=== PATIENT | male | born 1945 | race Asian ===

== ENCOUNTER 2017-06-20 12:20 | Emergency (ER) | payer MEDICARE, MEDICAID ==
[~2017-06-20] VITALS: Ht 167.6 cm; Wt 65.8 kg
[2017-06-20 12:43] VITALS: BP 129/57
[2017-06-20] MEDS ORDERED: LIDOCAINE 1% HCL (LOCAL ANESTH.) INJ 20ML MDV IJ ONE (13:15)
[2017-06-20] MEDS ORDERED: TETANUS-DIPTH-ACEL PERTUSSIS 0.5ML SYRG IM ONE ×2 (13:35→13:45)
== END 2017-06-20 13:47 | disposition home or self-care (01) ==
LOC: ER 12:20
DX: S01.81XA Laceration without foreign body of other part of head, initial encounter (principal); W22.8XXA Striking against or struck by other objects, initial encounter; Y93.89 Activity, other specified; Y92.89 Other specified places as the place of occurrence of the external cause; Y99.8 Other external cause status
CPT/HCPCS: 12015; 90471; 90715; 99283; J2001

== ENCOUNTER 2017-06-22 10:52 | Emergency (ER) | payer MEDICARE, MEDICAID ==
[~2017-06-22] VITALS: Ht 167.6 cm; Wt 72.6 kg
[2017-06-22 11:18] VITALS: BP 129/64
[2017-06-22] MEDS ORDERED: BACITRACIN TOP OINT 1 UD PKG TOP ONE (14:30)
== END 2017-06-22 14:55 | disposition home or self-care (01) ==
LOC: ER 10:52
DX: S01.81XD Laceration without foreign body of other part of head, subsequent encounter (principal); X58.XXXD Exposure to other specified factors, subsequent encounter

== ENCOUNTER 2017-06-27 09:37 | Emergency (ER) | payer MEDICARE, MEDICAID ==
[~2017-06-27] VITALS: Ht 167.6 cm; Wt 65.8 kg
[2017-06-27 11:28] VITALS: BP 141/54
== END 2017-06-27 11:36 | disposition home or self-care (01) ==
LOC: ER 09:37
DX: S01.81XD Laceration without foreign body of other part of head, subsequent encounter (principal); Z48.02 Encounter for removal of sutures

== ENCOUNTER 2023-04-13 08:16 | Inpatient (IN) | payer BC, OTHER ==
[~2023-04-13] VITALS: Ht 165.1 cm; Wt 61.3 kg
[~2023-04-13 08:16] MED LIST: MECL1TAB31 PO
[2023-04-13 09:01] LABS: Basophils # (auto) 0 10 ^3/uL (0-0.2); Basophils % (auto) 0.5 % (0.0-2.0); Eosinophils # (auto) 0.1 10 ^3/uL (0-0.8); Eosinophils % (auto) 2.8 % (0.0-7.0); Hematocrit 41.9 % (41.0-53.0); Hemoglobin 13.8 g/dL (13.5-17.5); Lymphocytes % (auto) 20.6 % (10.0-50.0); Mean Corpuscular Hemoglobin 31.5 pg (28.0-32.0); Mean Corpuscular Volume 95.7 fL (80.0-100.0); Monocytes # (auto) 0.4 10 ^3/uL (0-1.3); Monocytes % (auto) 8.2 % (0.0-12.0); Neutrophils # (auto) 3.3 10 ^3/uL (1.6-8.6); Neutrophils % (auto) 67.9 % (37.0-80.0); Red Blood Cells 4.38 10^6/uL (4.5-5.90); White Blood Cell 4.8 10^3/uL (4.4-10.8)
[2023-04-13 09:19] LABS: Alanine Aminotransferase 19 U/L (7-40); Albumin 4.6 g/dL (3.2-4.8); Alkaline Phosphatase 33 U/L (46-116); Anion Gap 8 (5-15); Aspartate Aminotransferase 11 U/L (13-40); BUN/Creatinine Ratio 12.2 (10.0-20.0); Bilirubin, Total 0.7 mg/dL (0.2-1.0); Blood Urea Nitrogen 17 mg/dL (9-23); Calcium 9.6 mg/dL (8.5-10.1); Carbon Dioxide 26 mmol/L (20-30); Chloride 105 mmol/L (98-107); Glucose 187 mg/dL (74-106); Potassium 4.4 mmol/L (3.5-5.1); Sodium 139 mmol/L (136-145); Total Protein 7.5 g/dL (5.7-8.2)
[2023-04-13 09:59] VITALS: PULSE 84; RESP 16; O2SAT 97
[2023-04-13] MEDS ORDERED: NITROGLYCERIN 0.4 MG SL TAB SL PRN (13:15)
[2023-04-13] MEDS ORDERED: ONDANSETRON HCL 4 MG/2 ML VIAL IV PRN (13:15)
[2023-04-13] MEDS ORDERED: DEXTROSE (50%) 50ML SYRG IV PRN (13:15)
[2023-04-13] MEDS ORDERED: MORPHINE SULFATE INJ 2 MG/ml SYRG IV PRN (13:15)
[2023-04-13] MEDS ORDERED: DOCUSATE SOD 100 MG CAP PO PRN (13:15)
[2023-04-13] MEDS ORDERED: hydrALAZINE HCL 20 MG/ML VL IV PRN (13:15)
[2023-04-13] MEDS ORDERED: ACETAMINOPHEN 325 MG TAB PO PRN (13:15)
[2023-04-13] MEDS ORDERED: METF-372 PO (13:27)
[2023-04-13] MEDS ORDERED: ASPI-325 PO (13:27)
[2023-04-13] MEDS ORDERED: TAMS0.4C36 PO (13:27)
[2023-04-13] MEDS ORDERED: EZET-10 PO (13:27)
[2023-04-13] MEDS ORDERED: CARV6.2551 PO (13:27)
[2023-04-13] MEDS ORDERED: ATOR-47 PO (13:27)
[2023-04-13] MEDS ORDERED: GLIM2TAB94 PO (13:27)
[2023-04-13] MEDS ORDERED: SACU1TAB PO (13:27)
[2023-04-13] MEDS ORDERED: FENO1TAB PO (13:27)
[2023-04-13] MEDS ORDERED: CLOP75TA70 PO (13:27)
[2023-04-13] MEDS ORDERED: EMPA1TAB PO (13:27)
[2023-04-13] MEDS ORDERED: ALEN70TA74 PO (13:27)
[2023-04-13] MEDS ORDERED: FAMO-12 PO (13:27)
[2023-04-13] MEDS ORDERED: SITA100T7 PO (13:27)
[2023-04-13] MEDS ORDERED: ALENDRONATE SODIUM 70 MG PO SCH (13:30)
[2023-04-13] MEDS ORDERED: SODIUM CHLORIDE 0.9% 1,000 ML IV ONE (13:30)
[2023-04-13] MEDS: ACCU-CHEK COMFORT CURVE STRIP VI SCH ×2 (17:22→22:16)
[2023-04-13] MEDS: TAMSULOSIN HYDROCHLORIDE 0.4 MG CAP PO SCH (19:01)
[2023-04-13] MEDS: InsuLIN REG 1unit/0.01ml Soln (100units/ml) SC SCH ×2 (19:39→22:21)
[2023-04-13 20:10] VITALS: PULSE 81; RESP 20; O2SAT 95
[2023-04-13] MEDS: CARVEDILOL 3.125 MG TAB PO SCH (22:00)
[2023-04-13] MEDS: FAMOTIDINE 20 MG TAB PO SCH (22:21)
[2023-04-13] MEDS: SACUBITRIL-VALSARTAN 24mg/26mg TAB PO SCH (22:23)
[2023-04-14] VITALS (11 sets, daily range): BP systolic 99–128; BP diastolic 47–70; PULSE 72–89; RESP 16–20; TEMP 97.4–97.9; O2SAT 95–98
[2023-04-14] MEDS ORDERED: CLOP75TA70 PO (01:50)
[2023-04-14] MEDS ORDERED: METF-372 PO (01:50)
[2023-04-14] MEDS ORDERED: SACU1TAB PO (01:52)
[2023-04-14] MEDS ORDERED: EZET10TA22 PO (01:52)
[2023-04-14] MEDS ORDERED: CARV6.2551 PO (01:52)
[2023-04-14 06:00] LABS: Urine Bacteria NONE SEEN /hpf (None Seen); Urine Blood Negative /uL (Negative); Urine Clarity Clear (Clear); Urine Color Colorless (Yellow); Urine Protein, UAD Negative (Negative); Urine Specific Gravity 1.014 (1.001-1.035); Urine Urobilinogen Normal (Negative); Urine WBC <1 /hpf (0 - 3); Urine pH 5.5 (5.0-8.0)
[2023-04-14 06:02] LABS: Basophils # (auto) 0 10 ^3/uL (0-0.2); Basophils % (auto) 0.4 % (0.0-2.0); Eosinophils # (auto) 0.1 10 ^3/uL (0-0.8); Hemoglobin 12.7 g/dL (13.5-17.5); Lymphocytes # (auto) 1.7 10 ^3/uL (0.4-5.4); Lymphocytes % (auto) 28.3 % (10.0-50.0); Mean Corpuscular Hgb Conc. 33.6 g/dL (32.0-36.0); Mean Corpuscular Volume 95.4 fL (80.0-100.0); Monocytes # (auto) 0.5 10 ^3/uL (0-1.3); Monocytes % (auto) 9.2 % (0.0-12.0); Neutrophils # (auto) 3.5 10 ^3/uL (1.6-8.6); Neutrophils % (auto) 60.1 % (37.0-80.0); Red Blood Cells 3.98 10^6/uL (4.5-5.90); Red Cell Distribution Width 12.7 % (11.8-14.3); White Blood Cell 5.9 10^3/uL (4.4-10.8)
[2023-04-14] MEDS: ACCU-CHEK COMFORT CURVE STRIP VI SCH ×4 (06:03→22:38)
[2023-04-14] MEDS: InsuLIN REG 1unit/0.01ml Soln (100units/ml) SC SCH ×4 (06:04→22:00)
[2023-04-14 06:21] LABS: Alanine Aminotransferase 13 U/L (7-40); Alkaline Phosphatase 30 U/L (46-116); Anion Gap 9 (5-15); Aspartate Aminotransferase 10 U/L (13-40); BUN/Creatinine Ratio 11.2 (10.0-20.0); Blood Urea Nitrogen 14 mg/dL (9-23); Calcium 8.5 mg/dL (8.7-10.4); Carbon Dioxide 24 mmol/L (20-30); Chloride 104 mmol/L (98-107); Glucose 133 mg/dL (74-106); Potassium 3.6 mmol/L (3.5-5.1); Sodium 137 mmol/L (136-145)
[2023-04-14 06:22] LABS: Bilirubin, Total 0.7 mg/dL (0.2-1.0); Total Protein 6.6 g/dL (5.7-8.2)
[2023-04-14] MEDS: EZETIMIBE 10MG TABLET PO SCH (10:00)
[2023-04-14] MEDS: CARVEDILOL 3.125 MG TAB PO SCH ×2 (10:00→22:31)
[2023-04-14] MEDS: SACUBITRIL-VALSARTAN 24mg/26mg TAB PO SCH (10:00)
[2023-04-14] MEDS: Fenofibrate 1 TAB PO SCH (10:00)
[2023-04-14] MEDS: ASPirin-EC 81 mg tab PO SCH (12:02)
[2023-04-14] MEDS: ATORVASTATIN 20 MG TAB PO SCH (12:03)
[2023-04-14] MEDS: FAMOTIDINE 20 MG TAB PO SCH ×2 (12:06→22:31)
[2023-04-14] MEDS: CLOPIDOGREL BISULFATE 75 MG TAB PO SCH (12:06)
[2023-04-14] MEDS ORDERED: CYANOCOBALAMIN (B-12) 1000 MCG/1 ML VIAL IM ONE (16:30)
[2023-04-14] MEDS: TAMSULOSIN HYDROCHLORIDE 0.4 MG CAP PO SCH (18:00)
[2023-04-15] VITALS (8 sets, daily range): BP systolic 97–120; BP diastolic 46–59; PULSE 74–89; RESP 15–18; TEMP 97.6–98.1; O2SAT 95–99
[2023-04-15] MEDS: InsuLIN REG 1unit/0.01ml Soln (100units/ml) SC SCH ×4 (06:47→21:36)
[2023-04-15] MEDS: INSULIN LANTUS (GLARGINE) 1 /0.01ml (100units/ml) SC SCH (06:47)
[2023-04-15] MEDS: ACCU-CHEK COMFORT CURVE STRIP VI SCH ×4 (06:47→21:29)
[2023-04-15 07:02] LABS: Alanine Aminotransferase 12 U/L (7-40); Alkaline Phosphatase 31 U/L (46-116); Anion Gap 6 (5-15); Aspartate Aminotransferase 11 U/L (13-40); BUN/Creatinine Ratio 8.8 (10.0-20.0); Blood Urea Nitrogen 12 mg/dL (9-23); Carbon Dioxide 25 mmol/L (20-30); Chloride 106 mmol/L (98-107); Glucose 102 mg/dL (74-106); LDL Cholesterol 82 mg/dL (< 100); Potassium 3.7 mmol/L (3.5-5.1); Sodium 137 mmol/L (136-145); Triglycerides 104 mg/dL (< 150)
[2023-04-15 07:03] LABS: Bilirubin, Total 0.6 mg/dL (0.2-1.0); Cholesterol 146 mg/dL (< 200); HDL Cholesterol 51 mg/dL (40-59); Total Protein 6.6 g/dL (5.7-8.2)
[2023-04-15 07:12] LABS: INR 1.01 (0.9-1.15); Prothrombin Time 10.6 sec (9.3-11.8)
[2023-04-15 07:20] LABS: Basophils # (auto) 0 10 ^3/uL (0-0.2); Basophils % (auto) 0.9 % (0.0-2.0); Eosinophils # (auto) 0.2 10 ^3/uL (0-0.8); Eosinophils % (auto) 3.7 % (0.0-7.0); Hematocrit 37.9 % (41.0-53.0); Hemoglobin 12.7 g/dL (13.5-17.5); Lymphocytes # (auto) 1.9 10 ^3/uL (0.4-5.4); Lymphocytes % (auto) 38.1 % (10.0-50.0); Mean Corpuscular Hemoglobin 31.7 pg (28.0-32.0); Mean Corpuscular Hgb Conc. 33.4 g/dL (32.0-36.0); Mean Corpuscular Volume 94.8 fL (80.0-100.0); Monocytes # (auto) 0.5 10 ^3/uL (0-1.3); Monocytes % (auto) 10.4 % (0.0-12.0); Neutrophils # (auto) 2.3 10 ^3/uL (1.6-8.6); Neutrophils % (auto) 46.9 % (37.0-80.0); Nucleated Red Blood Cells % 0.2 %; Red Cell Distribution Width 12.9 % (11.8-14.3); White Blood Cell 4.9 10^3/uL (4.4-10.8)
[2023-04-15 08:50] LABS: Magnesium 2.1 mg/dL (1.6-2.6)
[2023-04-15] MEDS: CYANOCOBALAMIN 500 MCG TAB PO SCH (09:56)
[2023-04-15] MEDS: CLOPIDOGREL BISULFATE 75 MG TAB PO SCH (09:56)
[2023-04-15] MEDS: CARVEDILOL 3.125 MG TAB PO SCH ×2 (09:57→21:31)
[2023-04-15] MEDS: ATORVASTATIN 20 MG TAB PO SCH (09:58)
[2023-04-15] MEDS: Fenofibrate 1 TAB PO SCH (10:00)
[2023-04-15] MEDS: ASPirin-EC 81 mg tab PO SCH (10:01)
[2023-04-15] MEDS: FAMOTIDINE 20 MG TAB PO SCH ×2 (10:01→21:29)
[2023-04-15] MEDS ORDERED: ENOXAPARIN SOD 40 MG/0.4 ML SYRINGE SC ONE (10:30)
[2023-04-15] MEDS: EZETIMIBE 10MG TABLET PO SCH (12:10)
[2023-04-15] MEDS ORDERED: SODIUM CHLORIDE 0.9% 250 ML IV ONE (13:00)
[2023-04-15] MEDS ORDERED: IOHEXOL 350 MG/ML 100ML IJ ONE (15:40)
[2023-04-15] MEDS: TAMSULOSIN HYDROCHLORIDE 0.4 MG CAP PO SCH (17:47)
[2023-04-16 05:00] VITALS: BP 108/41; PULSE 73; RESP 18; TEMP 98.1; O2SAT 99
[2023-04-16] MEDS: InsuLIN REG 1unit/0.01ml Soln (100units/ml) SC SCH ×2 (06:33→11:30)
[2023-04-16] MEDS: ACCU-CHEK COMFORT CURVE STRIP VI SCH ×2 (06:33→12:40)
[2023-04-16] MEDS: INSULIN LANTUS (GLARGINE) 1 /0.01ml (100units/ml) SC SCH (06:41)
[2023-04-16 07:48] LABS: Basophils # (auto) 0 10 ^3/uL (0-0.2); Basophils % (auto) 0.4 % (0.0-2.0); Eosinophils # (auto) 0 10 ^3/uL (0-0.8); Eosinophils % (auto) 0.5 % (0.0-7.0); Hematocrit 38.3 % (41.0-53.0); Hemoglobin 12.9 g/dL (13.5-17.5); Lymphocytes % (auto) 12.6 % (10.0-50.0); Mean Corpuscular Hemoglobin 32.2 pg (28.0-32.0); Mean Corpuscular Hgb Conc. 33.6 g/dL (32.0-36.0); Mean Corpuscular Volume 95.7 fL (80.0-100.0); Monocytes # (auto) 0.3 10 ^3/uL (0-1.3); Monocytes % (auto) 3.9 % (0.0-12.0); Neutrophils # (auto) 6.3 10 ^3/uL (1.6-8.6); Neutrophils % (auto) 82.6 % (37.0-80.0); Red Blood Cells 4.01 10^6/uL (4.5-5.90); White Blood Cell 7.7 10^3/uL (4.4-10.8)
[2023-04-16 07:53] LABS: Calcium 8.8 mg/dL (8.7-10.4); Chloride 104 mmol/L (98-107); Potassium 4.5 mmol/L (3.5-5.1); Sodium 135 mmol/L (136-145)
[2023-04-16 07:54] LABS: Anion Gap 8 (5-15); Carbon Dioxide 23 mmol/L (20-30)
[2023-04-16 07:59] LABS: BUN/Creatinine Ratio 8.9 (10.0-20.0); Blood Urea Nitrogen 11 mg/dL (9-23); Glucose 120 mg/dL (74-106)
[2023-04-16 08:00] VITALS: PULSE 78; PULSE 80; RESP 17
[2023-04-16 08:00] LABS: Magnesium 2.2 mg/dL (1.6-2.6)
[2023-04-16 09:00] VITALS: BP 95/39; PULSE 80; RESP 18; TEMP 97.6; O2SAT 99
[2023-04-16] MEDS ORDERED: ENOXAPARIN SOD 40 MG/0.4 ML SYRINGE SC SCH (10:00)
[2023-04-16] MEDS: FAMOTIDINE 20 MG TAB PO SCH (10:07)
[2023-04-16] MEDS: CLOPIDOGREL BISULFATE 75 MG TAB PO SCH (10:07)
[2023-04-16] MEDS: CYANOCOBALAMIN 500 MCG TAB PO SCH (10:07)
[2023-04-16] MEDS: ASPirin-EC 81 mg tab PO SCH (10:07)
[2023-04-16] MEDS: ATORVASTATIN 20 MG TAB PO SCH (10:08)
[2023-04-16] MEDS: EZETIMIBE 10MG TABLET PO SCH (10:09)
[2023-04-16] MEDS: CARVEDILOL 3.125 MG TAB PO SCH (10:14)
[2023-04-16 12:46] VITALS: BP 128/71; PULSE 90; RESP 18; TEMP 97.7; O2SAT 100
[2023-04-16 13:00] VITALS: BP 128/71; PULSE 90; RESP 18; TEMP 97.7; O2SAT 100
== END 2023-04-16 14:18 | disposition home or self-care (01) | DRG 67 ==
LOC: EDBD 08:16 → ER 08:16 → TELE 13:05 → TELE-CENTR 23:35
PROVIDERS: ADMIT Internal Medicine Pulmonary Disease; ATTEND Internal Medicine Pulmonary Disease
DX: I65.22 Occlusion and stenosis of left carotid artery (principal); N17.0 Acute kidney failure with tubular necrosis; I50.22 Chronic systolic (congestive) heart failure; E11.9 Type 2 diabetes mellitus without complications; I25.10 Atherosclerotic heart disease of native coronary artery without angina pectoris; E78.5 Hyperlipidemia, unspecified; I11.0 Hypertensive heart disease with heart failure; N40.0 Benign prostatic hyperplasia without lower urinary tract symptoms; R55 Syncope and collapse; E53.8 Deficiency of other specified B group vitamins; Z95.1 Presence of aortocoronary bypass graft
CPT/HCPCS: 36415; 70450; 70498; 70551; 71045; 80048; 80053; 80061; 81001; 82140; 82306; 82533; 82607; 82746; 82962; 83036; 83735; 83880; 84443; 84484; 85025; 85610; 93005; 93306; 93886; 97110; 97116; 97163; 97530; 99291; G0378; J1815